=== PATIENT | male | born 1990 | race Caucasian/White ===

== ENCOUNTER 2021-01-16 19:29 | Emergency (ER) | payer SELFPAY ==
[~2021-01-16] VITALS: Ht 172.7 cm; Wt 112.9 kg
[2021-01-16 19:32] VITALS: BP 114/50
[2021-01-16] MEDS ORDERED: WATER STERILE 10 ML MC ONE (19:40)
[2021-01-16] MEDS ORDERED: methylPREDNISolone SS 125 MG/2 ML VIAL ONE (19:40)
--- NOTE | 2021-01-16 19:45 | NUR ---
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 PT HAD AN EPI PEN AND DID NOT USE IT. SCARRERED RASH AND HIVES NOTED, NO TONGUE SWELLING OR DIFFICULTY BREATHING NOTED.
[2021-01-16] MEDS: EPINEPHrine 1 MG/ML AMP IM ONE (19:51)
[2021-01-16] MEDS: diphenhydrAMINE 50 MG CAP PO ONE (19:53)
[2021-01-16] MEDS: methylPREDNISolone SS 125 MG in WATER STERILE 2 ML IM ONE (19:53)
[2021-01-16] MEDS: FAMOTIDINE 20 MG TAB PO ONE (19:54)
--- NOTE | 2021-01-16 21:00 | NUR ---
O2 SAT DROPS SLIGHTLY WHEN PT IS RESTING WITH EYES CLOSED AND SNORING, WHEN AWAKENED O2 SAT RETURS TO 94=96%
[2021-01-16] MEDS ORDERED: FAMO-92 PO (22:34)
[2021-01-16] MEDS ORDERED: BEN50 PO (22:34)
[2021-01-16] MEDS ORDERED: EPIN0.3S IM (22:34)
[2021-01-16] MEDS ORDERED: PRED20TA5 PO (22:34)
[2021-01-16 22:59] VITALS: BP 112/64
--- NOTE | 2021-01-16 22:59 | NUR ---
Patient discharged with v/s stable. Written and verbal after care instructions given and explained. Patient alert, oriented and verbalized understanding of instructions. Ambulatory with steady gait. All questions addressed prior to discharge. ID band removed. Patient advised to follow up with PMD. Rx of BENADRYL, EPINEPHRINE, PEPCID, PREDNISONE given. Patient educated on indication of medication including possible reaction and side effects. Opportunity to ask questions provided and answered.
== END 2021-01-16 22:59 | disposition home or self-care (01) ==
LOC: MED 19:29
DX: T63.441A Toxic effect of venom of bees, accidental (unintentional), initial encounter (principal); Z79.899 Other long term (current) drug therapy
CPT/HCPCS: 93005; 96372; 99285; J0171; J2930; Q0163